=== PATIENT | female | born 1960 | race Caucasian/White ===

== ENCOUNTER 2019-09-04 09:24 | Outpatient (REF) | payer BC, SELFPAY ==
[2019-09-04 20:16] LABS: Prothrombin Time 40.6 sec (9.3-11.0)
[2019-09-04 20:50] LABS: INR 4.2 (0.9-1.1)
== END 2019-09-04 09:44 ==
LOC: NCHCN 09:24
PROVIDERS: Family Medicine; Visit Provider Internal Medicine
DX: Z95.2 Presence of prosthetic heart valve (principal); Z79.01 Long term (current) use of anticoagulants; R53.1 Weakness; Z93.4 Other artificial openings of gastrointestinal tract status; K21.9 Gastro-esophageal reflux disease without esophagitis; E11.9 Type 2 diabetes mellitus without complications; D50.9 Iron deficiency anemia, unspecified
CPT/HCPCS: 84590; 85610

== ENCOUNTER 2019-10-05 14:47 | Outpatient (REF) | payer BC, SELFPAY ==
[2019-10-05 22:15] LABS: Albumin 3.2 g/dL (3.4-5.0); Anion Gap 5.3 mmol/L (3-11); CO2 31.7 mmol/L (21.0-32.0); Calcium 8.1 mg/dL (8.5-10.1); Chloride 104 mmol/L (98-107); Estimated GFR 56.37 (mL/min/1.73m2); NT-proBNP 481 pg/mL (<300); Potassium 3.6 mmol/L (3.5-5.1); Sodium 141 mmol/L (136-145); TSH (W/Ref FT4) 0.28 uIU/mL (0.36-3.74)
[2019-10-05 22:46] LABS: ALT 24 U/L (14-59); AST 28 U/L (15-37); Alkaline Phosphatase 97 U/L (46-116); BUN 13 mg/dL (7-18); Bilirubin, Total 0.5 mg/dL (0.2-1.0); Glucose 115 mg/dL (74-106); Total Protein 6.2 g/dL (6.4-8.2)
[2019-10-06 03:06] LABS: FREE T4 1.43 ng/dL (0.76-1.46)
[2019-10-06 12:49] LABS: HCT 30.7 % (36.0-46.0); HGB 8.6 g/dL (12.0-15.5); Mean Corpuscular Hemoglobin 21.2 pg (27.0-33.0); Mean Corpuscular Volume 75.6 fL (80-95); Mean Platelet Volume 9.7 fL (8.0-11.0); Platelet Count 423 x1000/uL (130-400); RBC 4.06 m/cumm (4.00-5.20); RBC Distribution Width 16.7 % (11.7-14.6)
== END 2019-10-05 15:07 ==
LOC: NCHCN 14:47
PROVIDERS: Visit Provider Internal Medicine
DX: R06.02 Shortness of breath (principal); R53.83 Other fatigue
CPT/HCPCS: 80053; 85027; 83880; 84439; 84443

== ENCOUNTER 2019-10-12 14:30 | Outpatient (REF) | payer BC, SELFPAY ==
[2019-10-12 21:12] LABS: INR 3.4 (0.9-1.1); Prothrombin Time 33.5 sec (9.3-11.0)
[2019-10-12 22:33] LABS: Anion Gap 6.5 mmol/L (3-11); BUN 12 mg/dL (7-18); CO2 30.5 mmol/L (21.0-32.0); CREATININE 1.01 mg/dL (0.55-1.02); Calcium 7.8 mg/dL (8.5-10.1); Chloride 104 mmol/L (98-107); Estimated GFR 55.72 (mL/min/1.73m2); Glucose 55 mg/dL (74-106); Potassium 3.7 mmol/L (3.5-5.1); Sodium 141 mmol/L (136-145)
== END 2019-10-12 14:50 ==
LOC: NCHCN 14:30
PROVIDERS: Visit Provider Internal Medicine
DX: R06.02 Shortness of breath (principal); Z79.01 Long term (current) use of anticoagulants; Z95.2 Presence of prosthetic heart valve
CPT/HCPCS: 80048; 85610

== ENCOUNTER 2019-10-30 17:34 | Outpatient (REF) | payer BC, SELFPAY ==
[2019-10-30 19:56] LABS: INR 2.6 (0.9-1.1)
[2019-10-30 20:31] LABS: HCT 36.4 % (36.0-46.0); HGB 10.5 g/dL (12.0-15.5); Mean Corp. HGB Concentration 28.8 g/dL (32.0-36.0); Mean Corpuscular Hemoglobin 24.4 pg (27.0-33.0); Mean Corpuscular Volume 84.5 fL (80-95); Mean Platelet Volume 9.4 fL (8.0-11.0); Platelet Count 359 x1000/uL (130-400); RBC 4.31 m/cumm (4.00-5.20); RBC Distribution Width 25.7 % (11.7-14.6); White Blood Cell Count 6.64 k/cumm (4.4-10.8)
[2019-10-30 21:21] LABS: Ferritin 204 ng/mL (8-252)
== END 2019-10-30 17:54 ==
LOC: NCHCN 17:34
PROVIDERS: Nurse Practitioner Family; Visit Provider Internal Medicine
DX: D50.9 Iron deficiency anemia, unspecified (principal); Z79.01 Long term (current) use of anticoagulants; Z95.2 Presence of prosthetic heart valve
CPT/HCPCS: 85027; 82728; 85610

== ENCOUNTER 2021-03-08 19:05 | Outpatient (REF) | payer BC, SELFPAY ==
[2021-03-08 21:53] LABS: Abs Immature Grans 0.03 10^3/uL (0.0-0.06); Absolute Basophil Count 0.08 10^3/uL (0.0-0.2); Absolute Eosinophil Count 0.01 10^3/uL (0.0-0.7); Absolute Lymphocyte Count 2.17 10^3/uL (1.2-3.4); Absolute Monocyte Count 1.06 10^3/uL (0.1-0.8); Absolute Neutrophil Count 6.68 10^3/uL (1.2-6.7); Basophils % 0.8; Eosinophils % 0.1; HCT 44.6 % (36.0-46.0); HGB 14.5 g/dL (11.2-15.7); Immature Grans % 0.3; Lymphocytes % 21.6; MCH 30.7 pg (27.0-33.0); MCHC 32.5 % (32.0-36.0); MCV 94.3 fL (80-95); MPV 9.9 fL (8.0-11.0); Monocytes % 10.6; Neutrophils % 66.6; Nucleated RBC 0 %; Platelet Count 303 10^3/uL (130-400); RBC 4.73 10^6/uL (3.93-5.22); RDW 14.4 % (11.7-14.6); RDW-SD 49.8 fL; WBC 10.03 10^3/uL (4.4-10.8)
[2021-03-08 22:10] LABS: ALT 22 U/L (14-59); AST 31 U/L (15-37); Albumin 3.8 g/dL (3.4-5.0); Alkaline Phosphatase 100 U/L (46-116); Anion Gap 9.5 mmol/L (3-11); BUN 14 mg/dL (7-18); Bilirubin, Total 0.8 mg/dL (0.2-1.0); CO2 28.5 mmol/L (21.0-32.0); CREATININE 1.1 mg/dL (0.55-1.02); Chloride 106 mmol/L (98-107); Estimated GFR 50.33 (mL/min/1.73m2); Glucose 82 mg/dL (74-106); Potassium 4.2 mmol/L (3.5-5.1); Sodium 144 mmol/L (136-145); Total Protein 6.4 g/dL (6.4-8.2)
[2021-03-08 22:26] LABS: Hemoglobin A1C 5.1 % (<5.7)
== END 2021-03-08 19:06 | disposition home or self-care (01) ==
LOC: NCHCN 19:05
PROVIDERS: Visit Provider Internal Medicine
DX: E11.9 Type 2 diabetes mellitus without complications (principal); I50.9 Heart failure, unspecified
CPT/HCPCS: 80053; 83036; 85025

== ENCOUNTER 2021-04-04 17:24 | Outpatient (REF) | payer BC, SELFPAY ==
[2021-04-04 21:28] LABS: HCT 46.1 % (36.0-46.0); MCH 30.5 pg (27.0-33.0); MCHC 32.5 % (32.0-36.0); MCV 93.7 fL (80-95); MPV 9.8 fL (8.0-11.0); Platelet Count 348 10^3/uL (130-400); RBC 4.92 10^6/uL (3.93-5.22); RDW 13.2 % (11.7-14.6); RDW-SD 45.6 fL
[2021-04-04 21:37] LABS: Prothrombin Time 61.9 sec (9.3-11.0)
[2021-04-04 22:15] LABS: INR 6.5 (0.9-1.1)
[2021-04-06 12:55] LABS: COVID-19 RT-PCR UVMMC Result Negative (Negative)
== END 2021-04-04 17:25 | disposition home or self-care (01) ==
LOC: NCHCN 17:24
PROVIDERS: Visit Provider Nurse Practitioner Family
DX: Z95.2 Presence of prosthetic heart valve (principal); Z79.01 Long term (current) use of anticoagulants; J06.9 Acute upper respiratory infection, unspecified; J02.9 Acute pharyngitis, unspecified; Z20.822 Contact with and (suspected) exposure to COVID-19
CPT/HCPCS: 85027; U0003; 85610

== ENCOUNTER 2021-07-24 21:46 | Outpatient (REF) | payer BC, SELFPAY ==
[2021-07-26 12:53] LABS: COVID-19 RT-PCR UVMMC Result Negative (Negative)
== END 2021-07-24 21:47 | disposition home or self-care (01) ==
LOC: NCHCN 21:46
PROVIDERS: Visit Provider Internal Medicine
DX: Z20.822 Contact with and (suspected) exposure to COVID-19 (principal); J06.9 Acute upper respiratory infection, unspecified
CPT/HCPCS: U0003

== ENCOUNTER 2021-08-01 15:19 | Outpatient (REF) | payer BC, SELFPAY ==
[2021-08-01 22:29] LABS: Prothrombin Time 55.9 sec (9.3-11.0)
[2021-08-01 23:17] LABS: INR 5.8 (0.9-1.1)
== END 2021-08-01 15:20 | disposition home or self-care (01) ==
LOC: NCHCN 15:19
PROVIDERS: Visit Provider Internal Medicine
DX: I48.0 Paroxysmal atrial fibrillation (principal)
CPT/HCPCS: 85610

== ENCOUNTER 2022-02-07 19:57 | Outpatient (REF) | payer MEDICAID, SELFPAY ==
[2022-02-07 21:47] LABS: Prothrombin Time 66.3 sec (9.3-11.0)
[2022-02-07 22:01] LABS: INR 6.9 (0.9-1.1)
== END 2022-02-07 19:58 | disposition home or self-care (01) ==
LOC: NCHCN 19:57
PROVIDERS: Visit Provider Internal Medicine
DX: I50.9 Heart failure, unspecified (principal); Z95.2 Presence of prosthetic heart valve; Z79.01 Long term (current) use of anticoagulants
CPT/HCPCS: 85610

== ENCOUNTER 2022-06-06 17:00 | Outpatient (REF) | payer MEDICAID, SELFPAY ==
[2022-06-06 21:11] LABS: HCT 44.3 % (36.0-46.0); HGB 14.1 g/dL (11.2-15.7); MCH 29.7 pg (27.0-33.0); MCHC 31.8 % (32.0-36.0); MCV 94 fL (80-95); Platelet Count 318 10^3/uL (130-400); RBC 4.74 10^6/uL (3.93-5.22); RDW 13.9 % (11.7-14.6); RDW-SD 47.9 fL; WBC 11.51 10^3/uL (4.4-10.8)
== END 2022-06-06 17:01 | disposition home or self-care (01) ==
LOC: NCHCN 17:00
PROVIDERS: Visit Provider Internal Medicine
DX: D64.9 Anemia, unspecified (principal)
CPT/HCPCS: 85027

== ENCOUNTER 2022-06-25 15:36 | Outpatient (REF) | payer MEDICAID, SELFPAY ==
[2022-06-25 20:54] LABS: Prothrombin Time 41.6 sec (9.3-11.0)
[2022-06-25 21:07] LABS: INR 4.5 (0.9-1.1)
== END 2022-06-25 15:37 | disposition home or self-care (01) ==
LOC: NCHCN 15:36
PROVIDERS: PCP Nurse Practitioner Family; Visit Provider Internal Medicine
DX: Z51.81 Encounter for therapeutic drug level monitoring (principal)
CPT/HCPCS: 85610

== ENCOUNTER 2022-07-18 16:33 | Outpatient (REF) | payer MEDICAID, SELFPAY ==
[2022-07-18 20:58] LABS: C-Reactive Protein 0.09 mg/dL (0.0-0.3); ESR 11 mm/hr (0-30)
== END 2022-07-18 16:34 | disposition home or self-care (01) ==
LOC: NCHCN 16:33
PROVIDERS: PCP Nurse Practitioner Family; Visit Provider Internal Medicine
DX: G44.89 Other headache syndrome (principal)
CPT/HCPCS: 85652; 86140

== ENCOUNTER 2022-08-15 18:22 | Outpatient (REF) | payer MEDICAID, SELFPAY ==
[2022-08-15 14:45] LABS: Lithium 0.4 mmol/l (0.6-1.2)
[2022-08-15 14:57] LABS: ALT 44 U/L (14-59); AST 49 U/L (15-37); Albumin 3.3 g/dL (3.4-5.0); Alkaline Phosphatase 93 U/L (46-116); Anion Gap 4.6 mmol/L (3-11); BUN 11 mg/dL (7-18); Bilirubin, Total 0.6 mg/dL (0.2-1.0); CO2 31.4 mmol/L (21.0-32.0); CREATININE 1.2 mg/dL (0.55-1.02); Calcium 8.7 mg/dL (8.5-10.1); Chloride 109 mmol/L (98-107); Estimated GFR 50.55 (mL/min/1.73m2); FREE T4 0.84 ng/dL (0.76-1.46); Glucose 150 mg/dL (74-106); Potassium 4.1 mmol/L (3.5-5.1); Sodium 145 mmol/L (136-145); TSH 2.86 uIU/mL (0.36-3.74); Total Protein 6.5 g/dL (6.4-8.2)
== END 2022-08-15 18:23 | disposition home or self-care (01) ==
LOC: LBN 18:22
PROVIDERS: PCP Nurse Practitioner Family; Visit Provider Nurse Practitioner Family
DX: F31.62 Bipolar disorder, current episode mixed, moderate (principal); Z91.49 Other personal history of psychological trauma, not elsewhere classified; Z79.899 Other long term (current) drug therapy; Z51.81 Encounter for therapeutic drug level monitoring
CPT/HCPCS: 80053; 80178; 84439; 84443

== ENCOUNTER 2022-09-06 21:09 | Outpatient (REF) | payer MEDICAID, SELFPAY ==
[2022-09-06 21:28] LABS: Anion Gap 5.5 mmol/L (3-11); BUN 20 mg/dL (7-18); CO2 30.5 mmol/L (21.0-32.0); CREATININE 1.5 mg/dL (0.55-1.02); Calcium 9.1 mg/dL (8.5-10.1); Chloride 106 mmol/L (98-107); Estimated GFR 38.67 (mL/min/1.73m2); Glucose 116 mg/dL (74-106); Potassium 4.3 mmol/L (3.5-5.1); Sodium 142 mmol/L (136-145)
== END 2022-09-06 21:10 | disposition home or self-care (01) ==
LOC: NCHCN 21:09
PROVIDERS: PCP Nurse Practitioner Family; Visit Provider Internal Medicine
DX: I50.30 Unspecified diastolic (congestive) heart failure
CPT/HCPCS: 80048

== ENCOUNTER 2022-09-13 16:38 | Outpatient (REF) | payer MEDICAID, SELFPAY ==
[2022-09-13 21:09] LABS: Anion Gap 3.5 mmol/L (3-11); BUN 15 mg/dL (7-18); CO2 31.5 mmol/L (21.0-32.0); CREATININE 1.2 mg/dL (0.55-1.02); Calcium 8.8 mg/dL (8.5-10.1); Chloride 107 mmol/L (98-107); Estimated GFR 50.55 (mL/min/1.73m2); Glucose 53 mg/dL (74-106); Potassium 4.5 mmol/L (3.5-5.1); Sodium 142 mmol/L (136-145)
== END 2022-09-13 16:39 | disposition home or self-care (01) ==
LOC: NCHCN 16:38
PROVIDERS: PCP Nurse Practitioner Family; Visit Provider Internal Medicine
DX: I50.9 Heart failure, unspecified (principal)
CPT/HCPCS: 80048

== ENCOUNTER 2022-11-16 16:21 | Outpatient (REF) | payer MEDICAID, SELFPAY ==
[2022-11-16 21:53] LABS: HCT 44.8 % (36.0-46.0); HGB 13.9 g/dL (11.2-15.7); MCH 28.4 pg (27.0-33.0); MCV 91 fL (80-95); MPV 9.7 fL (8.0-11.0); Platelet Count 332 10^3/uL (130-400); RDW-SD 51.2 fL; WBC 9.53 10^3/uL (4.4-10.8)
[2022-11-16 22:09] LABS: Iron 34 ug/dL (50-170)
[2022-11-16 22:20] LABS: Ferritin 136 ng/mL (8-252)
[2022-11-19 09:27] LABS: Total Iron Binding Capacity 409 ug/dL (250-450)
== END 2022-11-16 16:22 | disposition home or self-care (01) ==
LOC: NCHCN 16:21
PROVIDERS: PCP Nurse Practitioner Family; Visit Provider Internal Medicine
DX: D50.9 Iron deficiency anemia, unspecified (principal); R06.00 Dyspnea, unspecified
CPT/HCPCS: 85027; 82728; 83540; 83550

== ENCOUNTER 2022-12-17 16:14 | Outpatient (REF) | payer MEDICAID, SELFPAY ==
[2022-12-17 20:55] LABS: HGB 13.8 g/dL (11.2-15.7); MCH 28.8 pg (27.0-33.0); MCHC 31.4 % (32.0-36.0); MCV 92 fL (80-95); MPV 9.4 fL (8.0-11.0); Platelet Count 341 10^3/uL (130-400); RBC 4.79 10^6/uL (3.93-5.22); RDW-SD 51.1 fL; WBC 12.96 10^3/uL (4.4-10.8)
[2022-12-17 21:03] LABS: Anion Gap 3.2 mmol/L (3-11); BUN 11 mg/dL (7-18); CO2 33.8 mmol/L (21.0-32.0); CREATININE 1.2 mg/dL (0.55-1.02); Calcium 8.8 mg/dL (8.5-10.1); Chloride 105 mmol/L (98-107); Estimated GFR 50.55 (mL/min/1.73m2); Glucose 101 mg/dL (74-106); Potassium 4.7 mmol/L (3.5-5.1); Sodium 142 mmol/L (136-145)
[2022-12-17 21:39] LABS: Prothrombin Time 47.3 sec (9.3-11.0)
[2022-12-17 21:52] LABS: INR 4.7 (0.9-1.1)
== END 2022-12-17 16:15 | disposition home or self-care (01) ==
LOC: NCHCN 16:14
PROVIDERS: PCP Nurse Practitioner Family; Visit Provider Internal Medicine
DX: N18.9 Chronic kidney disease, unspecified (principal); R79.1 Abnormal coagulation profile
CPT/HCPCS: 80048; 85027; 85610

== ENCOUNTER 2022-12-21 11:30 | Outpatient (REF) | payer MEDICAID, SELFPAY ==
[2022-12-21 15:39] LABS: Lithium 0.3 mmol/l (0.6-1.2)
[2022-12-21 15:57] LABS: Anion Gap 4.4 mmol/L (3-11); BUN 16 mg/dL (7-18); CO2 29.6 mmol/L (21.0-32.0); CREATININE 1.2 mg/dL (0.55-1.02); Calcium 9.1 mg/dL (8.5-10.1); Chloride 108 mmol/L (98-107); Estimated GFR 50.55 (mL/min/1.73m2); FREE T4 1.01 ng/dL (0.76-1.46); Glucose 111 mg/dL (74-106); Potassium 4.3 mmol/L (3.5-5.1); Sodium 142 mmol/L (136-145); TSH 6.78 uIU/mL (0.36-3.74)
== END 2022-12-21 11:31 | disposition home or self-care (01) ==
LOC: NCHCN 11:30
PROVIDERS: PCP Nurse Practitioner Family; Visit Provider Nurse Practitioner Family
DX: F31.32 Bipolar disorder, current episode depressed, moderate (principal); F31.77 Bipolar disorder, in partial remission, most recent episode mixed; R45.851 Suicidal ideations; F31.81 Bipolar II disorder; F13.288 Sedative, hypnotic or anxiolytic dependence with other sedative, hypnotic or anxiolytic-induced disorder; Z91.49 Other personal history of psychological trauma, not elsewhere classified; Z81.1 Family history of alcohol abuse and dependence; Z51.81 Encounter for therapeutic drug level monitoring; Z79.899 Other long term (current) drug therapy
CPT/HCPCS: 80048; 80178; 84439; 84443

== ENCOUNTER 2022-12-27 18:19 | Outpatient (REF) | payer MEDICAID, SELFPAY ==
[2022-12-27 21:58] LABS: Anion Gap 5.6 mmol/L (3-11); BUN 23 mg/dL (7-18); CO2 31.4 mmol/L (21.0-32.0); CREATININE 1.5 mg/dL (0.55-1.02); Calcium 9.2 mg/dL (8.5-10.1); Chloride 101 mmol/L (98-107); Estimated GFR 38.67 (mL/min/1.73m2); Glucose 116 mg/dL (74-106); Potassium 3.7 mmol/L (3.5-5.1); Sodium 138 mmol/L (136-145)
== END 2022-12-27 18:20 | disposition home or self-care (01) ==
LOC: NCHCN 18:19
PROVIDERS: PCP Nurse Practitioner Family; Visit Provider Internal Medicine
DX: R60.0 Localized edema (principal)
CPT/HCPCS: 80048

== ENCOUNTER 2023-01-04 16:21 | Outpatient (REF) | payer MEDICAID, SELFPAY ==
[2023-01-04 21:34] LABS: Anion Gap 5.6 mmol/L (3-11); BUN 18 mg/dL (7-18); CO2 33.4 mmol/L (21.0-32.0); CREATININE 1.4 mg/dL (0.55-1.02); Calcium 9.5 mg/dL (8.5-10.1); Chloride 101 mmol/L (98-107); Estimated GFR 42.01 (mL/min/1.73m2); Glucose 80 mg/dL (74-106); Potassium 3.8 mmol/L (3.5-5.1); Sodium 140 mmol/L (136-145)
== END 2023-01-04 16:22 | disposition home or self-care (01) ==
LOC: NCHCN 16:21
PROVIDERS: PCP Nurse Practitioner Family; Visit Provider Internal Medicine
DX: N18.9 Chronic kidney disease, unspecified (principal)
CPT/HCPCS: 80048

== ENCOUNTER 2023-01-11 16:06 | Outpatient (REF) | payer MEDICAID, SELFPAY ==
[2023-01-11 15:03] LABS: Prothrombin Time 43.4 sec (9.3-11.0)
[2023-01-11 15:11] LABS: INR 4.3 (0.9-1.1)
== END 2023-01-11 16:07 | disposition home or self-care (01) ==
LOC: NCHCN 16:06
PROVIDERS: PCP Nurse Practitioner Family; Visit Provider Internal Medicine
DX: Z95.2 Presence of prosthetic heart valve (principal); Z79.01 Long term (current) use of anticoagulants
CPT/HCPCS: 85610

== ENCOUNTER 2023-01-18 15:48 | Outpatient (REF) | payer MEDICAID, SELFPAY ==
[2023-01-18 15:19] LABS: INR 3.4 (0.9-1.1); Prothrombin Time 34.7 sec (9.3-11.0)
--- OUTSIDE RECORDS SUMMARY | 2023-01-18 15:53 | XMS_ITS | CCD ---
Author Name Unknown Address [address] [place] [address] [phone] Organization Unknown Address [address] [place] [address] [phone] Care Team Providers Care Forger Helper Name Role Phone MARISELA LUNA Attending Physician [phone] Vital Signs Unknown or Not Available. Allergies Allergy Code Allergy Type Reaction Status No Known Allergies 0 No known allergies Active Procedures Unknown or Not Available. History of Immunizations Unknown or Not Available. Problems Problem Code Start Date Resolved Date Status Pneumonia 336938453 Active Paroxysmal atrial fibrillation 236840929 Active Chronic pain due to injury 181721687 Active Hypoxia 286484542 Active Hyperlipidemia 27328928 01/31/2022 Resolved Obstructive sleep apnea 27867402 01/31/2022 R esolved Anxiety 90934693 01/31/2022 Resolved Rheumatic heart disease 23250402 01/31/2022 R esolved Aortic valve disorder 0666002 01/31/2022 Res olved Mitral valve disorder 24053566 01/31/2022 Res olved Personal history of TIA 827924335 01/31/2022 R esolved Type 2 diabetes 17353815 01/31/2022 Resolved Gastroesophageal reflux disease 845640211 01/08 Resolved Iron deficiency anemia 33581477 01/31/2022 Re solved Bipolar disorder 82684048 01/31/2022 Resolved Heart failure 93828108 01/31/2022 Resolved Results PT PROTHROMBIN TIME* - Colle ct Date/Time: 11/02/2021 13:15 Test Name Code Test Result Test Units Test Ref Rang e PROTIME 5902-2 25.9 seconds L=9.3 H=11.4 INR 09339-9 2.77 L=2.00 H=3.00 Active Medications Medication Code Dose Units Frequency Route Modificatio n Start Date/Time Azithromycin 250MG Oral Tablet 482905 1 TABLET DAILY ORAL 02/03/2022 08:48 Prescription Detail TAKE 1 TABLET ORAL DAILY ALPRAZolam 1MG Oral Tablet 989788 1 MILLIGRAMS NEEDED TWICE DAILY ORAL 02/03/2022 08:41 Prescription Detail TAKE 1 MILLIGRAMS ORAL NEEDED TWICE D AILY Desvenlafaxine 100MG Oral Tablet, Extended Release 639595 100 MILLIGRAMS DAILY ORAL 2 08:41 Prescription Detail TAKE 100 MILLIGRAMS ORAL DAILY Ezetimibe 10 MG Oral Tablet 176692 10 MG BEDTIME ORAL 02/04/20 22 08:41 Prescription Detail TAKE 10 MG ORAL BEDTIME lamoTRIgine 100MG Oral Tablet 945580 100 MILLIGRAMS DAILY ORAL 2 08:41 Prescription Detail TAKE 100 MILLIGRAMS ORAL DAILY lamoTRIgine 25MG Oral Tablet 735997 25 MILLIGRAMS DAILY ORAL 022 08:41 Prescription Detail TAKE 25 MILLIGRAMS ORAL DAILY metFORMIN HCl 500MG Oral Tablet, Extended Release 538612 500 MILLIGRAMS BEDTIME ORAL 2 08:41 Prescription Detail TAKE 500 MILLIGRAMS ORAL BEDTIME Rosuvastatin 40MG Oral Tablet 205362 40 MILLIGRAMS BEDTIME ORAL 08:41 Prescription Detail TAKE 40 MILLIGRAMS ORAL BEDTIME Spironolactone 25MG Oral Tablet 173000 25 MILLIGRAMS TWICE A DAY ORAL 02/03/2022 08:41 Prescription Detail TAKE 25 MILLIGRAMS ORAL TWICE A DAY Warfarin Sodium 2MG Oral Tablet 444368 2 MILLIGRAMS BEDTIME ORAL 08:41 Prescription Detail TAKE 2 MILLIGRAMS ORAL BEDTIME Protonix 40MG Oral Tablet, Enteric Coated 048515 40 MILLIGRAMS DAILY ORAL 07/10 13:32 Prescription Detail TAKE 40 MILLIGRAMS ORAL DAILY PREMARIN 0.45MG ORAL TABLET 0 0.45 MILLIGRAMS DAILY ORAL 019 00:16 Prescription Detail TAKE 0.45 MILLIGRAMS ORAL DAILY Medications Administered During Visit Unknown or Not Available. Encounters Encounter Diagnosis Diagnosis Code Start Date Long-term current use of anticoagulant [id number] 11/02/2021 Social History Smoking Status Code Start Date End Date Former smoker 3765337 Patient Decision Aids Unknown or Not Available. 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 If you have left the hospital and have any questions, please contact your primary care physician. Chief Complaint and Reason For Visit Unknown or Not Available. Function Status Description Code Date Type Status No Cognitive Impairments 29736483 Functional Active No Functional Impairments 63626517 Functional Active Plan of Care Unknown or Not Available. Referral/Transition of Care Unknown or Not Available.
--- OUTSIDE RECORDS SUMMARY | 2023-01-18 15:53 | XMS_ITS | CCD ---
Author Name Unknown Address [address] [place] [address] [phone] Organization Unknown Address [address] [place] [address] [phone] Care Team Providers Care Elder Counselor Name Role Phone MARISELA LUNA Attending Physician [phone] Vital Signs Unknown or Not Available. Allergies Allergy Code Allergy Type Reaction Status No Known Allergies 0 No known allergies Active Procedures Unknown or Not Available. History of Immunizations Unknown or Not Available. Problems Problem Code Start Date Resolved Date Status Pneumonia 954268912 Active Paroxysmal atrial fibrillation 161166755 Active Chronic pain due to injury 336063495 Active Hypoxia 912172396 Active Hyperlipidemia 25713605 01/31/2022 Resolved Obstructive sleep apnea 74535635 01/31/2022 R esolved Anxiety 58815668 01/31/2022 Resolved Rheumatic heart disease 47354640 01/31/2022 R esolved Aortic valve disorder 6196398 01/31/2022 Res olved Mitral valve disorder 93077990 01/31/2022 Res olved Personal history of TIA 470448747 01/31/2022 R esolved Type 2 diabetes 07499136 01/31/2022 Resolved Gastroesophageal reflux disease 582461630 01/08 Resolved Iron deficiency anemia 85382343 01/31/2022 Re solved Bipolar disorder 38112736 01/31/2022 Resolved Heart failure 65282983 01/31/2022 Resolved Results Unknown or Not Available. Active Medications Medication Code Dose Units Frequency Route Modificatio n Start Date/Time Azithromycin 250MG Oral Tablet 692612 1 TABLET DAILY ORAL 02/03/2022 08:48 Prescription Detail TAKE 1 TABLET ORAL DAILY ALPRAZolam 1MG Oral Tablet 253505 1 MILLIGRAMS NEEDED TWICE DAILY ORAL 02/03/2022 08:41 Prescription Detail TAKE 1 MILLIGRAMS ORAL NEEDED TWICE D AILY Desvenlafaxine 100MG Oral Tablet, Extended Release 218183 100 MILLIGRAMS DAILY ORAL 08:41 Prescription Detail TAKE 100 MILLIGRAMS ORAL DAILY Ezetimibe 10 MG Oral Tablet 151661 10 MG BEDTIME ORAL 02/04/20 08:41 Prescription Detail TAKE 10 MG ORAL BEDTIME lamoTRIgine 100MG Oral Tablet 410990 100 MILLIGRAMS DAILY ORAL 2 08:41 Prescription Detail TAKE 100 MILLIGRAMS ORAL DAILY lamoTRIgine 25MG Oral Tablet 572920 25 MILLIGRAMS DAILY ORAL 022 08:41 Prescription Detail TAKE 25 MILLIGRAMS ORAL DAILY metFORMIN HCl 500MG Oral Tablet, Extended Release 763033 500 MILLIGRAMS BEDTIME ORAL 08:41 Prescription Detail TAKE 500 MILLIGRAMS ORAL BEDTIME Rosuvastatin 40MG Oral Tablet 520750 40 MILLIGRAMS BEDTIME ORAL 08:41 Prescription Detail TAKE 40 MILLIGRAMS ORAL BEDTIME Spironolactone 25MG Oral Tablet 803860 25 MILLIGRAMS TWICE A DAY ORAL 02/03/2022 08:41 Prescription Detail TAKE 25 MILLIGRAMS ORAL TWICE A DAY Warfarin Sodium 2MG Oral Tablet 311295 2 MILLIGRAMS BEDTIME ORAL 08:41 Prescription Detail TAKE 2 MILLIGRAMS ORAL BEDTIME Protonix 40MG Oral Tablet, Enteric Coated 362760 40 MILLIGRAMS DAILY ORAL 07/10 13:32 Prescription Detail TAKE 40 MILLIGRAMS ORAL DAILY PREMARIN 0.45MG ORAL TABLET 0 0.45 MILLIGRAMS DAILY ORAL 019 00:16 Prescription Detail TAKE 0.45 MILLIGRAMS ORAL DAILY Medications Administered During Visit Unknown or Not Available. Encounters Encounter Diagnosis Diagnosis Code Start Date Primary osteoarthritis, right shoulder [id number] 01/19/2022 Social History Smoking Status Code Start Date End Date Former smoker [id number] Patient Decision Aids Unknown or Not Available. Discharge Instructions You were admitted to [facility] on 01/19/2022 06:43 with a principal diagnosis of Primary osteoarthritis, right shoulder You were discharged from [facility] on 01/19/2022 06:43 Should you have any questions prior to discharge, please contact a member of your healthcare team. If you have left the hospital and have any questions, please contact your primary care physician. Chief Complaint and Reason For Visit Chief Complaint Date of Onset RT SHOULDER PAIN Function Status Description Code Date Type Status No Cognitive Impairments 54122432 Functional Active No Functional Impairments 51672481 Functional Active Plan of Care Unknown or Not Available. Referral/Transition of Care Unknown or Not Available.
--- OUTSIDE RECORDS SUMMARY | 2023-01-18 15:53 | XMS_ITS | CCD ---
Author Name Unknown Address [address] [place] [address] [phone] Organization Unknown Address [address] [place] [address] [phone] Care Team Providers Care General Agent Name Role Phone MARISELA LUNA Attending Physician [phone] Vital Signs Unknown or Not Available. Allergies Allergy Code Allergy Type Reaction Status No Known Allergies 0 No known allergies Active Procedures Unknown or Not Available. History of Immunizations Unknown or Not Available. Problems Problem Code Start Date Resolved Date Status Pneumonia 612945984 Active Paroxysmal atrial fibrillation 186207325 Active Chronic pain due to injury 810430003 Active Hypoxia 210129661 Active Hyperlipidemia 53876728 01/31/2022 Resolved Obstructive sleep apnea 97775819 01/31/2022 R esolved Anxiety 55189917 01/31/2022 Resolved Rheumatic heart disease 53955206 01/31/2022 R esolved Aortic valve disorder 4073063 01/31/2022 Res olved Mitral valve disorder 26638910 01/31/2022 Res olved Personal history of TIA 867476346 01/31/2022 R esolved Type 2 diabetes 38085992 01/31/2022 Resolved Gastroesophageal reflux disease 738079813 01/08 Resolved Iron deficiency anemia 17189429 01/31/2022 Re solved Bipolar disorder 21775099 01/31/2022 Resolved Heart failure 70242256 01/31/2022 Resolved Results PT PROTHROMBIN TIME* - Colle ct Date/Time: 07/26/2021 13:19 Test Name Code Test Result Test Units Test Ref Rang e PROTIME 5902-2 97.3 seconds L=9.3 H=11.4 INR 46724-1 9.76 L=2.00 H=3.00 CULT URINE CULTURE* - Colle t Date/Time: 07/26/2021 13:19 Test Name Code Test Result Test Units Test Ref Rang e COLLECTION MODE: CLEAN CATCH N/A Active Medications Medication Code Dose Units Frequency Route Modificatio n Start Date/Time Azithromycin 250MG Oral Tablet 556546 1 TABLET DAILY ORAL 02/03/2022 08:48 Prescription Detail TAKE 1 TABLET ORAL DAILY ALPRAZolam 1MG Oral Tablet 141711 1 MILLIGRAMS NEEDED TWICE DAILY ORAL 02/03/2022 08:41 Prescription Detail TAKE 1 MILLIGRAMS ORAL NEEDED TWICE D AILY Desvenlafaxine 100MG Oral Tablet, Extended Release 676034 100 MILLIGRAMS DAILY ORAL 2 08:41 Prescription Detail TAKE 100 MILLIGRAMS ORAL DAILY Ezetimibe 10 MG Oral Tablet 760463 10 MG BEDTIME ORAL 02/04/20 08:41 Prescription Detail TAKE 10 MG ORAL BEDTIME lamoTRIgine 100MG Oral Tablet 975438 100 MILLIGRAMS DAILY ORAL 2 08:41 Prescription Detail TAKE 100 MILLIGRAMS ORAL DAILY lamoTRIgine 25MG Oral Tablet 878646 25 MILLIGRAMS DAILY ORAL 022 08:41 Prescription Detail TAKE 25 MILLIGRAMS ORAL DAILY metFORMIN HCl 500MG Oral Tablet, Extended Release 676570 500 MILLIGRAMS BEDTIME ORAL 08:41 Prescription Detail TAKE 500 MILLIGRAMS ORAL BEDTIME Rosuvastatin 40MG Oral Tablet 684833 40 MILLIGRAMS BEDTIME ORAL 08:41 Prescription Detail TAKE 40 MILLIGRAMS ORAL BEDTIME Spironolactone 25MG Oral Tablet 536292 25 MILLIGRAMS TWICE A DAY ORAL 02/03/2022 08:41 Prescription Detail TAKE 25 MILLIGRAMS ORAL TWICE A DAY Warfarin Sodium 2MG Oral Tablet 805920 2 MILLIGRAMS BEDTIME ORAL 08:41 Prescription Detail TAKE 2 MILLIGRAMS ORAL BEDTIME Protonix 40MG Oral Tablet, Enteric Coated 241082 40 MILLIGRAMS DAILY ORAL 07/10 13:32 Prescription Detail TAKE 40 MILLIGRAMS ORAL DAILY PREMARIN 0.45MG ORAL TABLET 0 0.45 MILLIGRAMS DAILY ORAL 019 00:16 Prescription Detail TAKE 0.45 MILLIGRAMS ORAL DAILY Medications Administered During Visit Unknown or Not Available. Encounters Encounter Diagnosis Diagnosis Code Start Date Long-term current use of anticoagulant [id number] 07/26/2021 Social History Smoking Status Code Start Date End Date Former smoker 7019393 Patient Decision Aids Unknown or Not Available. 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 If you have left the hospital and have any questions, please contact your primary care physician. Chief Complaint and Reason For Visit Chief Complaint Date of Onset Encounter for screening mammogram for ma lignant neoplasm of breast Function Status Description Code Date Type Status No Cognitive Impairments 62753271 Functional Active No Functional Impairments 04786902 Functional Active Plan of Care Unknown or Not Available. Referral/Transition of Care Unknown or Not Available.
--- OUTSIDE RECORDS SUMMARY | 2023-01-18 15:53 | XMS_ITS | CCD ---
Author Name Unknown Address [address] [place] [address] [phone] Organization Unknown Address [address] [place] [address] [phone] Care Team Providers Care Bake Room Worker Name Role Phone MARISELA LUNA Attending Physician [phone] Vital Signs Unknown or Not Available. Allergies Allergy Code Allergy Type Reaction Status No Known Allergies 0 No known allergies Active Procedures Unknown or Not Available. History of Immunizations Unknown or Not Available. Problems Problem Code Start Date Resolved Date Status Pneumonia 402291405 Active Paroxysmal atrial fibrillation 980114558 Active Chronic pain due to injury 139177414 Active Hypoxia 210871825 Active Hyperlipidemia 61392226 01/31/2022 Resolved Obstructive sleep apnea 47471975 01/31/2022 R esolved Anxiety 83325288 01/31/2022 Resolved Rheumatic heart disease 90255974 01/31/2022 R esolved Aortic valve disorder 0112046 01/31/2022 Res olved Mitral valve disorder 46186546 01/31/2022 Res olved Personal history of TIA 311353887 01/31/2022 R esolved Type 2 diabetes 49491804 01/31/2022 Resolved Gastroesophageal reflux disease 028849419 01/08 Resolved Iron deficiency anemia 31939601 01/31/2022 Re solved Bipolar disorder 76183000 01/31/2022 Resolved Heart failure 11381758 01/31/2022 Resolved Results Unknown or Not Available. Active Medications Medication Code Dose Units Frequency Route Modificatio n Start Date/Time Azithromycin 250MG Oral Tablet 043608 1 TABLET DAILY ORAL 02/03/2022 08:48 Prescription Detail TAKE 1 TABLET ORAL DAILY ALPRAZolam 1MG Oral Tablet 759241 1 MILLIGRAMS NEEDED TWICE DAILY ORAL 02/03/2022 08:41 Prescription Detail TAKE 1 MILLIGRAMS ORAL NEEDED TWICE D AILY Desvenlafaxine 100MG Oral Tablet, Extended Release 447266 100 MILLIGRAMS DAILY ORAL 2 08:41 Prescription Detail TAKE 100 MILLIGRAMS ORAL DAILY Ezetimibe 10 MG Oral Tablet 728540 10 MG BEDTIME ORAL 02/04/20 08:41 Prescription Detail TAKE 10 MG ORAL BEDTIME lamoTRIgine 100MG Oral Tablet 264393 100 MILLIGRAMS DAILY ORAL 2 08:41 Prescription Detail TAKE 100 MILLIGRAMS ORAL DAILY lamoTRIgine 25MG Oral Tablet 756241 25 MILLIGRAMS DAILY ORAL 022 08:41 Prescription Detail TAKE 25 MILLIGRAMS ORAL DAILY metFORMIN HCl 500MG Oral Tablet, Extended Release 523033 500 MILLIGRAMS BEDTIME ORAL 08:41 Prescription Detail TAKE 500 MILLIGRAMS ORAL BEDTIME Rosuvastatin 40MG Oral Tablet 060334 40 MILLIGRAMS BEDTIME ORAL 08:41 Prescription Detail TAKE 40 MILLIGRAMS ORAL BEDTIME Spironolactone 25MG Oral Tablet 429417 25 MILLIGRAMS TWICE A DAY ORAL 02/03/2022 08:41 Prescription Detail TAKE 25 MILLIGRAMS ORAL TWICE A DAY Warfarin Sodium 2MG Oral Tablet 463429 2 MILLIGRAMS BEDTIME ORAL 08:41 Prescription Detail TAKE 2 MILLIGRAMS ORAL BEDTIME Protonix 40MG Oral Tablet, Enteric Coated 463810 40 MILLIGRAMS DAILY ORAL 07/10 13:32 Prescription Detail TAKE 40 MILLIGRAMS ORAL DAILY PREMARIN 0.45MG ORAL TABLET 0 0.45 MILLIGRAMS DAILY ORAL 019 00:16 Prescription Detail TAKE 0.45 MILLIGRAMS ORAL DAILY Medications Administered During Visit Unknown or Not Available. Encounters Encounter Diagnosis Diagnosis Code Start Date Screening mammography [id number] 08/18/2021 Social History Smoking Status Code Start Date End Date Former smoker 6450299 Patient Decision Aids Unknown or Not Available. Discharge Instructions You were admitted to [facility] on 08/18/2021 11:08 with a principal diagnosis of Encounter for screening mammogram for malignant neoplasm of breast You were discharged from [facility] on 08/18/2021 11:08 Should you have any questions prior to discharge, please contact a member of your healthcare team. If you have left the hospital and have any questions, please contact your primary care physician. Chief Complaint and Reason For Visit Unknown or Not Available. Function Status Description Code Date Type Status No Cognitive Impairments 75130799 Functional Active No Functional Impairments 72473869 Functional Active Plan of Care Unknown or Not Available. Referral/Transition of Care Unknown or Not Available.
--- OUTSIDE RECORDS SUMMARY | 2023-01-18 15:54 | XMS_ITS | CCD ---
Author Name Unknown Address [address] [place] [address] [phone] Organization Unknown Address [address] [place], [place] [phone] Care Team Providers Care Validation Manager Name Role Phone JESSE HORNE Attending Physician [phone] DEEPTI GALLAGHER Er Physician [phone] ALEXEY SALAZAR (Secondary) Physician [phone] JONO Mathews Registered Nurse [phone] Vital Signs Vital Sign Value Unit Date/Time Recent/Initial ? BMI (Body Mass Index) 40.44 kg/m^2 01/31/2022 07: 34 Initial VS Weight Measured 221.12 lbs 01/31/2022 07:34 Ini tial VS Height 62 in 01/31/2022 07:34 Initial VS BSA (Body Surface Area) 2.09 m^2 01/31/2022 0 7:34 Initial VS BP Systolic 125 mmHg 01/31/2022 07:34 Initial VS BP Diastolic 92 mmHg 01/31/2022 07:34 Initia l VS Respiratory Rate 24 bpm 01/31/2022 07:34 In itial VS Heart Rate 89 bpm 01/31/2022 07:34 Initial VS O2 % BldC Oximetry 100 % 01/31/2022 07:34 Initial VS Body Temperature 37.9 degrees 01/31/2022 07:34 In itial VS BMI (Body Mass Index) 40.44 kg/m^2 02/02/2022 08: 06 Most Recent VS Weight Measured 221.12 lbs 02/02/2022 08:06 Mos t Recent VS Height 62 in 02/02/2022 08:06 Most Rec ent VS BSA (Body Surface Area) 2.09 m^2 02/02/2022 0 8:06 Most Recent VS BP Systolic 119 mmHg 02/03/2022 07:30 Most Re cent VS BP Diastolic 78 mmHg 02/03/2022 07:30 Most R ecent VS Respiratory Rate 21 bpm 02/03/2022 07:[address] Recent VS Heart Rate 73 bpm 02/03/2022 07:30 Most Rec ent VS O2 % BldC Oximetry 96 % 02/03/2022 07:30 Most Recent VS Body Temperature 37 degrees 02/03/2022 07:[address] Recent VS Allergies Allergy Code Allergy Type Reaction Status No Known Allergies 0 No known allergies Active Procedures Unknown or Not Available. History of Immunizations Unknown or Not Available. Problems Problem Code Start Date Resolved Date Status Pneumonia 552955688 Active Paroxysmal atrial fibrillation 481152983 Active Chronic pain due to injury 062773853 Active Hypoxia 021547818 Active Hyperlipidemia 41099958 01/31/2022 Resolved Obstructive sleep apnea 05506618 01/31/2022 R esolved Anxiety 64492535 01/31/2022 Resolved Rheumatic heart disease 15889712 01/31/2022 R esolved Aortic valve disorder 4909227 01/31/2022 Res olved Mitral valve disorder 85833333 01/31/2022 Res olved Personal history of TIA 882062025 01/31/2022 R esolved Type 2 diabetes 60394723 01/31/2022 Resolved Gastroesophageal reflux disease 821968056 01/08 Resolved Iron deficiency anemia 14928857 01/31/2022 Re solved Bipolar disorder 70057890 01/31/2022 Resolved Heart failure 64765595 01/31/2022 Resolved Results BASIC METABOLIC PANEL (BMP) - Collect Date/Time: 02/02/2022 06:20 Test Name Code Test Result Test Units Test Ref Rang e GLUCOSE 2345-7 87 mg/dL L=70 H=116 BUN 3094-0 18 mg/dL L=6 H=25 CREATININE 2160-0 1.05 mg/dL L=0.51 H=0.95 SODIUM SERUM 2951-2 140 mmol/L L=136 H=145 POTASSIUM SERUM 2823-3 3.6 mmol/L L=3.4 H=5 .2 CHLORIDE SERUM 2075-0 107 mmol/L L=96 H=110 CARBON DIOXIDE (CO2) 2028-9 25 mmol/L L=22 H=34 ANION GAP 56556-5 8.0 mmol/L CALCIUM SERUM 00863-6 8.2 mg/dL L=8.2 H=10. 2 AGE 61 years eGFR (non-Afr.Amer.) 28489-8 53 mL/min eGFR (Afr-German) 29783-3 64 mL/min BASIC METABOLIC PANEL (BMP) - Collect Date/Time: 02/01/2022 09:00 Test Name Code Test Result Test Units Test Ref Rang e GLUCOSE 2345-7 124 mg/dL L=70 H=116 BUN 3094-0 22 mg/dL L=6 H=25 CREATININE 2160-0 1.29 mg/dL L=0.51 H=0.95 SODIUM SERUM 2951-2 138 mmol/L L=136 H=145 POTASSIUM SERUM 2823-3 3.8 mmol/L L=3.4 H=5 .2 CHLORIDE SERUM 2075-0 104 mmol/L L=96 H=110 CARBON DIOXIDE (CO2) 2028-9 25 mmol/L L=22 H=34 ANION GAP 31843-7 8.8 mmol/L CALCIUM SERUM 62893-4 8.3 mg/dL L=8.2 H=10. 2 AGE 61 years eGFR (non-Afr.Amer.) 47689-4 42 mL/min eGFR (Afr-German) 18717-1 51 mL/min BNP (PRO-B NATRIURETIC PEPTI DE) - Collect Date/Time: 01/31/2022 07:00 Test Name Code Test Result Test Units Test Ref Rang e NT-proBNP 63512-1 320.0 pg/mL L=0.0 H=125 COMPREHENSIVE METABOLIC PANE L (CMP) - Collect Date/Time: 01/31/2022 07:00 Test Name Code Test Result Test Units Test Ref Rang e GLUCOSE 2345-7 116 mg/dL L=70 H=116 BUN 3094-0 18 mg/dL L=6 H=25 CREATININE 2160-0 1.24 mg/dL L=0.51 H=0.95 SODIUM SERUM 2951-2 138 mmol/L L=136 H=145 POTASSIUM SERUM 2823-3 3.8 mmol/L L=3.4 H=5 .2 CHLORIDE SERUM 2075-0 101 mmol/L L=96 H=110 CARBON DIOXIDE (CO2) 2028-9 28 mmol/L L=22 H=34 ANION GAP 93842-6 9.5 mmol/L CALCIUM SERUM 73458-6 8.7 mg/dL L=8.2 H=10. 2 BILIRUBIN TOTAL 1975-2 0.8 mg/dL L=0.0 H=1 .3 ALK. PHOS. 6768-6 96 U/L L=46 H=116 SGOT (AST) 1920-8 37 U/L L=15 H=37 SGPT (ALT) 1742-6 24 U/L L=12 H=78 TOTAL PROTEIN 2885-2 7.3 gm/dL L=6.0 H=8.0 ALBUMIN 1751-7 3.8 gm/dL L=3.4 H=5.0 AGE 61 years eGFR (non-Afr.Amer.) 24989-0 44 mL/min eGFR (Afr-German) 18244-9 53 mL/min LACTIC ACID - Collect Date/T niru: 02/02/2022 06:20 Test Name Code Test Result Test Units Test Ref Rang e LACTIC ACID 72089-4 1.6 mmol/L L=0.7 H=2.1 LACTIC ACID - Collect Date/T niru: 01/31/2022 07:00 Test Name Code Test Result Test Units Test Ref Rang e LACTIC ACID 70444-5 2.9 mmol/L L=0.7 H=2.1 MAGNESIUM SERUM* - Collect D ate/Time: 01/31/2022 07:00 Test Name Code Test Result Test Units Test Ref Rang e MAGNESIUM 23663-4 1.8 mg/dL L=1.8 H=2.4 TROPONIN HIGH SENSITIVITY* - Collect Date/Time: 01/31/2022 07:00 Test Name Code Test Result Test Units Test Ref Rang e TROPONIN HS 20.9 pg/mL L=0.0 H=60.4 Specimen seq. Random N/A CBC W/ DIFFERENTIAL* - [facility] ct Date/Time: 02/02/2022 06:20 Test Name Code Test Result Test Units Test Ref Rang e WBC 6690-2 13.62 th/cmm L=5.00 H=10.00 NEUT % 79.1 % L=40.0 H=80.0 LYMPH % 14.0 % L=10.0 H=50.0 MONO % 96081-6 6.1 % L=2.0 H=12.0 EOS % 0.0 % L=0.0 H=8.0 BASO % 0.2 % L=0.0 H=3.0 IG % 2514-8 0.6 % L=0.0 H=1.1 NRBC % 82650-4 0.0 % L=0.0 H=0.0 NEUT abs count 751-8 10.8 th/cmm L=1.6 H=8. 4 LYMPH abs count 731-0 1.9 th/cmm L=1.5 H=4 .0 MONO abs count 742-7 0.8 th/cmm L=0.2 H=1. 0 EOS abs count 711-2 0.0 th/cmm L=0.0 H=0.5 BASO abs count 704-7 0.0 th/cmm L=0.0 H=0. 2 IG abs count 05817-5 0.1 th/cmm L=0.0 H=0.1 NRBC abs count 73058-5 0.0 mil/cmm L=0.0 H=0. 0 RBC 789-8 3.70 mil/cmm L=3.90 H=5.40 HEMOGLOBIN 718-7 11.1 gm/dL L=12.0 H=16.0 HEMATOCRIT 4544-3 35 % L=37 H=47 MCV 787-2 94 fL L=82 H=92 MCH 785-6 30.0 pg L=27.0 H=31.0 MCHC 786-4 32.0 % L=32.0 H=36.0 RDW-SD 788-0 49.3 fL L=39.0 H=49.0 PLATELET COUNT 777-3 219 th/cmm L=150 H=45 0 CBC W/ DIFFERENTIAL* - [facility] ct Date/Time: 02/01/2022 09:00 Test Name Code Test Result Test Units Test Ref Rang e WBC 6690-2 19.01 th/cmm L=5.00 H=10.00 NEUT % 82.3 % L=40.0 H=80.0 LYMPH % 8.2 % L=10.0 H=50.0 MONO % 88128-4 5.5 % L=2.0 H=12.0 EOS % 0.2 % L=0.0 H=8.0 BASO % 0.3 % L=0.0 H=3.0 IG % 2514-8 3.5 % L=0.0 H=1.1 NRBC % 22998-2 0.0 % L=0.0 H=0.0 NEUT abs count 751-8 15.7 th/cmm L=1.6 H=8. 4 LYMPH abs count 731-0 1.6 th/cmm L=1.5 H=4 .0 MONO abs count 742-7 1.0 th/cmm L=0.2 H=1. 0 EOS abs count 711-2 0.0 th/cmm L=0.0 H=0.5 BASO abs count 704-7 0.1 th/cmm L=0.0 H=0. 2 IG abs count 06946-9 0.7 th/cmm L=0.0 H=0.1 NRBC abs count 02949-8 0.0 mil/cmm L=0.0 H=0. 0 RBC 789-8 4.03 mil/cmm L=3.90 H=5.40 HEMOGLOBIN 718-7 12.4 gm/dL L=12.0 H=16.0 HEMATOCRIT 4544-3 37 % L=37 H=47 MCV 787-2 93 fL L=82 H=92 MCH 785-6 30.8 pg L=27.0 H=31.0 MCHC 786-4 33.2 % L=32.0 H=36.0 RDW-SD 788-0 48.3 fL L=39.0 H=49.0 PLATELET COUNT 777-3 214 th/cmm L=150 H=45 0 CBC W/ DIFFERENTIAL* - [facility] ct Date/Time: 01/31/2022 07:00 Test Name Code Test Result Test Units Test Ref Rang e WBC 6690-2 11.95 th/cmm L=5.00 H=10.00 NEUT % 89.7 % L=40.0 H=80.0 LYMPH % 5.7 % L=10.0 H=50.0 MONO % 65527-7 3.9 % L=2.0 H=12.0 EOS % 0.0 % L=0.0 H=8.0 BASO % 0.2 % L=0.0 H=3.0 IG % 2514-8 0.5 % L=0.0 H=1.1 NRBC % 47719-2 0.0 % L=0.0 H=0.0 NEUT abs count 751-8 10.7 th/cmm L=1.6 H=8. 4 LYMPH abs count 731-0 0.7 th/cmm L=1.5 H=4 .0 MONO abs count 742-7 0.5 th/cmm L=0.2 H=1. 0 EOS abs count 711-2 0.0 th/cmm L=0.0 H=0.5 BASO abs count 704-7 0.0 th/cmm L=0.0 H=0. 2 IG abs count 24788-9 0.1 th/cmm L=0.0 H=0.1 NRBC abs count 91666-0 0.0 mil/cmm L=0.0 H=0. 0 RBC 789-8 5.08 mil/cmm L=3.90 H=5.40 HEMOGLOBIN 718-7 15.1 gm/dL L=12.0 H=16.0 HEMATOCRIT 4544-3 47 % L=37 H=47 MCV 787-2 92 fL L=82 H=92 MCH 785-6 29.7 pg L=27.0 H=31.0 MCHC 786-4 32.3 % L=32.0 H=36.0 RDW-SD 788-0 46.4 fL L=39.0 H=49.0 PLATELET COUNT 777-3 268 th/cmm L=150 H=45 0 D-DIMER - Collect Date/Time: 01/31/2022 07:00 Test Name Code Test Result Test Units Test Ref Rang e D-DIMER 68917-1 0.84 mg/L L=0.19 H=0.50 PT PROTHROMBIN TIME* - [facility] ct Date/Time: 02/03/2022 07:15 Test Name Code Test Result Test Units Test Ref Rang e PROTIME 5902-2 16.3 seconds L=9.3 H=11.4 INR 51150-3 1.69 L=2.00 H=3.00 PT PROTHROMBIN TIME* - [facility] ct Date/Time: 02/02/2022 06:20 Test Name Code Test Result Test Units Test Ref Rang e PROTIME 5902-2 23.5 seconds L=9.3 H=11.4 INR 38043-4 2.49 L=2.00 H=3.00 PT PROTHROMBIN TIME* - [facility] ct Date/Time: 02/01/2022 09:00 Test Name Code Test Result Test Units Test Ref Rang e PROTIME 5902-2 34.8 seconds L=9.3 H=11.4 INR 73077-4 3.80 L=2.00 H=3.00 PT PROTHROMBIN TIME* - [facility] ct Date/Time: 01/31/2022 07:00 Test Name Code Test Result Test Units Test Ref Rang e PROTIME 5902-2 30.9 seconds L=9.3 H=11.4 INR 80948-9 3.34 L=2.00 H=3.00 PTT PARTIAL THROMBOPLASTIN T NIRU* - Collect Date/Time: 02/01/2022 09:00 Test Name Code Test Result Test Units Test Ref Rang e PTT 93011-0 52 seconds L=24 H=32 MOSHE COVID GENEXPERT* - Co llect Date/Time: 01/31/2022 07:00 Test Name Code Test Result Test Units Test Ref Rang e COVID 00036-1 NEGATIVE N/A Normal: Negati ve [facility]- 18719-2 SYMPTOMS N/A Active Medications Medications Administered During Visit Medication Dose Units Frequency Route Date/Time of Last Dose ACETAMINOPHEN INJ IVPB: 1000MG/100ML 1000 MG X1 01/31/2022 07:4 6 CefTRIAXone IVPB: 1GM/50ML 1 GM X1 01/31/2022 09:12 AZITHROMYCIN IVPB: 500MG/250ML 500 MG X1 01/31/2022 09:54 SODIUM CHLORIDE 0.9% 500ML 500 ML X1 01/31/2022 08:23 FentaNYL INJ SDV: 100MCG/2ML 25 MCG X1 I STAMPING DIE MAKER 01/31/2022 09:13 ALBUTEROL/IPRATROP UPDRAFT:2.5/0.5MG/3ML 3 ML X1 INH 2021 09:13 LORazepam INJ SYRINGE: 2MG/ML 0.5 MG X1 IVP 01/31/2022 10:30 ONDANSETRON INJ SDV: 4MG/2ML 4 MG X1 I STAMPING DIE MAKER 01/31/2022 10:30 LIDOCAINE PATCH 5% 1 PATCH X1 TOP 0 01/31/2022 11:33 ACETAMINOPHEN INJ IVPB: 1000MG/100ML 1000 MG X1 01/31/2022 13:4 8 LamoTRIgine TABLET: 100MG 125 MG X1 PO 01/31/2022 14:14 ALPRAZolam TABLET: 0.25MG 1 MG X1 PO 01/31/2022 14:14 ACETAMINOPHEN TABLET: 325MG 975 MG PRN Q6H PO 02/03/2022 08:27 SODIUM CHLORIDE 0.9% 1000ML 1000 ML X1 01/31/2022 17:43 ACETAMINOPHEN INJ IVPB: 1000MG/100ML 1 EA PRN Q6H 02/02/2022 05:3 2 DOCUSATE SODIUM CAPSULE: 100MG 100 MG BID PO 02/03/2022 08:28 AZITHROMYCIN IVPB: 500MG/250ML 500 MG Q24H 02/03/2022 09:58 CefTRIAXone IVPB: 1GM/50ML 1 GM Q24H 02/03/2022 08:29 PANTOPRAZOLE TABLET: 40MG 40 MG Q7AM PO 02/03/2022 06:21 LamoTRIgine TABLET: 100MG 100 MG DAILY PO 02/03/2022 08:27 SPIRONOLACTONE TABLET: 25MG 25 MG BID PO 02/03/2022 08:27 MetFORMIN TABLET EXTENDED RELEASE: 500MG 500 MG BEDTIME PO 02/02/2022 20 :30 ALPRAZolam TABLET: 0.25MG 1 MG PRN BID PO 02/01/2022 09:50 LamoTRIgine TABLET CHEWABLE: 25MG 25 MG DAILY CHEW 02/03/2022 08:2 7 EZETIMIBE TABLET: 10MG 10 MG BEDTIME PO 02/02/2022 20:29 NF-Premarin Oral Tablet 0.45MG 0.45 MILLIGRAMS DAILY ORAL 02/03/2022 08:28 NF-Desvenlafaxine Oral Table t ER 100MG 100 MG DAILY PO 02/03/2022 08:2 8 NF-Rosuvastatin Oral Tablet 40MG 40 MG BEDTIME PO 02/02/2022 20:2 9 NURSING REMINDER-CHECK FOR WARFARIN DOSE 1 --- Q6PM --- 02/02/2022 17: 56 GuaiFENesin/DM SYRUP: 200/20MG/10ML 10 ML PRN Q4H PO 02/02/2022 20: 29 BENZONATATE CAPSULE: 100MG 100 MG PRN TID PO 02/03/2022 08:27 ALBUTEROL/IPRATROP UPDRAFT:2.5/0.5MG/3ML 3 ML QID RESP INH 2021 11:37 IBUPROFEN TABLET: 400MG 400 MG X1 PO 01/31/2022 22:02 IBUPROFEN TABLET: 400MG 400 MG PRN Q6H PO 02/03/2022 01:37 ALPRAZolam TABLET: 0.25MG 1 MG BID PO 02/03/2022 08:27 WARFARIN TABLET: 2MG 2 MG Q6PM PO 02/02/2022 17:55 MethylPREDNISolone SUC INJ SDV:40MG/1ML 60 MG X1 IVP 02/03/2022 10:0 1 Encounters Encounter Diagnosis Diagnosis Code Start Date Pneumonia, unspecified organism [id number] 01/31/2022 Social History Smoking Status Code Start Date End Date Former smoker [id number] Patient Decision Aids Unknown or Not Available. Discharge Instructions You were admitted to [facility] on 01/31/2022 14:45 with a principal diagnosis of Pneumonia, unspecified organism You had the following tests done:PT PROTHROMBIN TIME*BASIC METABOLIC PANEL (BMP)CBC W/ DIFFERENTIAL*LACTIC ACIDPT PROTHROMBIN TIME*BASIC METABOLIC PANEL (BMP)CBC W/ DIFFERENTIAL*PT PROTHROMBIN TIME*PTT PARTIAL THROMBOPLASTIN TIME*BNP (PRO-B NATRIURETIC PEPTIDE)CBC W/ DIFFERENTIAL*COMPREHENSIVE METABOLIC PANEL (CMP)[facility] COVID GENEXPERT*D-DIMERLACTIC ACIDMAGNESIUM SERUM*PT PROTHROMBIN TIME*TROPONIN HIGH SENSITIVITY* You were discharged from [facility] on 02/03/2022 13:10 Should you have any questions prior to discharge, please contact a member of your healthcare team. If you have left the hospital and have any questions, please contact your primary care physician. Chief Complaint and Reason For Visit Chief Complaint Date of Onset PNEUMONIA 01/31/2022 Function Status Description Code Date Type Status No Cognitive Impairments 66847536 Functional Active No Functional Impairments 48394377 Functional Active Plan of Care Unknown or Not Available. Referral/Transition of Care Unknown or Not Available.
--- OUTSIDE RECORDS SUMMARY | 2023-01-18 15:54 | XMS_ITS | CCD ---
Author Name Unknown Address [address] [place] [address] [phone] Organization Unknown Address [address] [place] [address] [id number] Care Team Providers Care Neon Glass Blower Name Role Phone MARISELA LNUA Attending Physician [phone] Vital Signs Unknown or Not Available. Allergies Allergy Code Allergy Type Reaction Status No Known Allergies 0 No known allergies Active Procedures Unknown or Not Available. History of Immunizations Unknown or Not Available. Problems Problem Code Start Date Resolved Date Status Pneumonia 964631848 Active Paroxysmal atrial fibrillation 660549730 Active Chronic pain due to injury 662957080 Active Hypoxia 471884350 Active Results Unknown or Not Available. Active Medications Medication Code Dose Units Frequency Route Modificatio n Start Date/Time Azithromycin 250MG Oral Tablet 165520 1 TABLET DAILY ORAL 02/03/2022 08:48 Prescription Detail TAKE 1 TABLET ORAL DAILY ALPRAZolam 1MG Oral Tablet 198876 1 MILLIGRAMS NEEDED TWICE DAILY ORAL 02/03/2022 08:41 Prescription Detail TAKE 1 MILLIGRAMS ORAL NEEDED TWICE D AILY Desvenlafaxine 100MG Oral Tablet, Extended Release 580568 100 MILLIGRAMS DAILY ORAL 2 08:41 Prescription Detail TAKE 100 MILLIGRAMS ORAL DAILY Ezetimibe 10 MG Oral Tablet 349907 10 MG BEDTIME ORAL 02/04/20 22 08:41 Prescription Detail TAKE 10 MG ORAL BEDTIME lamoTRIgine 100MG Oral Tablet 551729 100 MILLIGRAMS DAILY ORAL 2 08:41 Prescription Detail TAKE 100 MILLIGRAMS ORAL DAILY lamoTRIgine 25MG Oral Tablet 040589 25 MILLIGRAMS DAILY ORAL 022 08:41 Prescription Detail TAKE 25 MILLIGRAMS ORAL DAILY metFORMIN HCl 500MG Oral Tablet, Extended Release 208503 500 MILLIGRAMS BEDTIME ORAL 2 08:41 Prescription Detail TAKE 500 MILLIGRAMS ORAL BEDTIME Rosuvastatin 40MG Oral Tablet 334282 40 MILLIGRAMS BEDTIME ORAL 08:41 Prescription Detail TAKE 40 MILLIGRAMS ORAL BEDTIME Spironolactone 25MG Oral Tablet 691410 25 MILLIGRAMS TWICE A DAY ORAL 02/03/2022 08:41 Prescription Detail TAKE 25 MILLIGRAMS ORAL TWICE A DAY Warfarin Sodium 2MG Oral Tablet 362969 2 MILLIGRAMS BEDTIME ORAL 08:41 Prescription Detail TAKE 2 MILLIGRAMS ORAL BEDTIME Protonix 40MG Oral Tablet, Enteric Coated 266687 40 MILLIGRAMS DAILY ORAL 07/10 13:32 Prescription Detail TAKE 40 MILLIGRAMS ORAL DAILY PREMARIN 0.45MG ORAL TABLET 0 0.45 MILLIGRAMS DAILY ORAL 019 00:16 Prescription Detail TAKE 0.45 MILLIGRAMS ORAL DAILY Medications Administered During Visit Unknown or Not Available. 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 Discharge Instructions You were admitted to [facility] on 05/17/2022 16:20 with a principal diagnosis of Other intervertebral disc degeneration, lumbosacral region You were discharged from [facility] on 05/17/2022 16:20 Should you have any questions prior to discharge, please contact a member of your healthcare team. If you have left the hospital and have any questions, please contact your primary care physician. Chief Complaint and Reason For Visit Chief Complaint Date of Onset HIP PAIN CHRONIC LOW BACK PAIN Function Status Description Code Date Type Status No Cognitive Impairments 95575281 Functional Active No Functional Impairments 47955888 Functional Active Plan of Care Unknown or Not Available. Referral/Transition of Care Unknown or Not Available.
--- OUTSIDE RECORDS SUMMARY | 2023-01-18 15:54 | XMS_ITS | CCD ---
Author Name Unknown Address [address] [place] [address] [phone] Organization Unknown Address [address] [place] [address] [phone] Care Team Providers Care Meat Specialist Name Role Phone MARISELA LUNA Attending Physician [phone] Vital Signs Unknown or Not Available. Allergies Allergy Code Allergy Type Reaction Status No Known Allergies 0 No known allergies Active Procedures Unknown or Not Available. History of Immunizations Unknown or Not Available. Problems Problem Code Start Date Resolved Date Status Pneumonia 486395151 Active Paroxysmal atrial fibrillation 474240994 Active Chronic pain due to injury 454546587 Active Hypoxia 811273695 Active Results PT PROTHROMBIN TIME* - [facility] ct Date/Time: 06/13/2022 12:21 Test Name Code Test Result Test Units Test Ref Rang e PROTIME 5902-2 31.8 seconds L=9.3 H=11.4 INR 73345-1 3.45 L=2.00 H=3.00 Active Medications Medication Code Dose Units Frequency Route Modificatio n Start Date/Time Azithromycin 250MG Oral Tablet 536032 1 TABLET DAILY ORAL 02/03/2022 08:48 Prescription Detail TAKE 1 TABLET ORAL DAILY ALPRAZolam 1MG Oral Tablet 972439 1 MILLIGRAMS NEEDED TWICE DAILY ORAL 02/03/2022 08:41 Prescription Detail TAKE 1 MILLIGRAMS ORAL NEEDED TWICE D AILY Desvenlafaxine 100MG Oral Tablet, Extended Release 912237 100 MILLIGRAMS DAILY ORAL 2 08:41 Prescription Detail TAKE 100 MILLIGRAMS ORAL DAILY Ezetimibe 10 MG Oral Tablet 601271 10 MG BEDTIME ORAL 02/04/20 22 08:41 Prescription Detail TAKE 10 MG ORAL BEDTIME lamoTRIgine 100MG Oral Tablet 734047 100 MILLIGRAMS DAILY ORAL 2 08:41 Prescription Detail TAKE 100 MILLIGRAMS ORAL DAILY lamoTRIgine 25MG Oral Tablet 988540 25 MILLIGRAMS DAILY ORAL 022 08:41 Prescription Detail TAKE 25 MILLIGRAMS ORAL DAILY metFORMIN HCl 500MG Oral Tablet, Extended Release 509185 500 MILLIGRAMS BEDTIME ORAL 08:41 Prescription Detail TAKE 500 MILLIGRAMS ORAL BEDTIME Rosuvastatin 40MG Oral Tablet 907778 40 MILLIGRAMS BEDTIME ORAL 08:41 Prescription Detail TAKE 40 MILLIGRAMS ORAL BEDTIME Spironolactone 25MG Oral Tablet 976630 25 MILLIGRAMS TWICE A DAY ORAL 02/03/2022 08:41 Prescription Detail TAKE 25 MILLIGRAMS ORAL TWICE A DAY Warfarin Sodium 2MG Oral Tablet 620079 2 MILLIGRAMS BEDTIME ORAL 08:41 Prescription Detail TAKE 2 MILLIGRAMS ORAL BEDTIME Protonix 40MG Oral Tablet, Enteric Coated 629567 40 MILLIGRAMS DAILY ORAL 07/10 13:32 Prescription Detail TAKE 40 MILLIGRAMS ORAL DAILY PREMARIN 0.45MG ORAL TABLET 0 0.45 MILLIGRAMS DAILY ORAL 019 00:16 Prescription Detail TAKE 0.45 MILLIGRAMS ORAL DAILY Medications Administered During Visit Unknown or Not Available. Encounters Encounter Diagnosis Diagnosis Code Start Date Therapeutic drug monitoring assay [id number] 06/13/2022 Social History Smoking Status Code Start Date End Date Former smoker [id number] Patient Decision Aids Unknown or Not Available. Discharge Instructions You were admitted to [facility] on 06/13/2022 11:56 with a principal diagnosis of Encounter for therapeutic drug level monitoring You had the following tests done:PT PROTHROMBIN TIME* You were discharged from [facility] on 06/13/2022 11:56 Should you have any questions prior to discharge, please contact a member of your healthcare team. If you have left the hospital and have any questions, please contact your primary care physician. Chief Complaint and Reason For Visit Unknown or Not Available. Function Status Description Code Date Type Status No Cognitive Impairments 96139687 Functional Active No Functional Impairments 75070810 Functional Active Plan of Care Unknown or Not Available. Referral/Transition of Care Unknown or Not Available.
--- OUTSIDE RECORDS SUMMARY | 2023-01-18 15:54 | XMS_ITS | CCD ---
Author Name Unknown Address [address] [place] [address] [phone] Organization Unknown Address [address] [place] [address] [id number] Care Team Providers Care Rn Burn Name Role Phone JESSE HORNE Attending Physician [phone] Vital Signs Unknown or Not Available. Allergies Allergy Code Allergy Type Reaction Status No Known Allergies 0 No known allergies Active Procedures Unknown or Not Available. History of Immunizations Unknown or Not Available. Problems Problem Code Start Date Resolved Date Status Pneumonia 270281840 Active Paroxysmal atrial fibrillation 189730142 Active Chronic pain due to injury 335591604 Active Hypoxia 756614393 Active Hyperlipidemia 64502298 01/31/2022 Resolved Obstructive sleep apnea 07713529 01/31/2022 R esolved Anxiety 87511535 01/31/2022 Resolved Rheumatic heart disease 03636770 01/31/2022 R esolved Aortic valve disorder 1985960 01/31/2022 Res olved Mitral valve disorder 40196851 01/31/2022 Res olved Personal history of TIA 805180151 01/31/2022 R esolved Type 2 diabetes 93164560 01/31/2022 Resolved Gastroesophageal reflux disease 518685921 01/08 Resolved Iron deficiency anemia 61080907 01/31/2022 Re solved Bipolar disorder 88063269 01/31/2022 Resolved Heart failure 62807366 01/31/2022 Resolved Results Unknown or Not Available. Active Medications Medication Code Dose Units Frequency Route Modificatio n Start Date/Time Azithromycin 250MG Oral Tablet 935717 1 TABLET DAILY ORAL 02/03/2022 08:48 Prescription Detail TAKE 1 TABLET ORAL DAILY ALPRAZolam 1MG Oral Tablet 335180 1 MILLIGRAMS NEEDED TWICE DAILY ORAL 02/03/2022 08:41 Prescription Detail TAKE 1 MILLIGRAMS ORAL NEEDED TWICE D AILY Desvenlafaxine 100MG Oral Tablet, Extended Release 198112 100 MILLIGRAMS DAILY ORAL 2 08:41 Prescription Detail TAKE 100 MILLIGRAMS ORAL DAILY Ezetimibe 10 MG Oral Tablet 042081 10 MG BEDTIME ORAL 02/04/20 08:41 Prescription Detail TAKE 10 MG ORAL BEDTIME lamoTRIgine 100MG Oral Tablet 842689 100 MILLIGRAMS DAILY ORAL 2 08:41 Prescription Detail TAKE 100 MILLIGRAMS ORAL DAILY lamoTRIgine 25MG Oral Tablet 115070 25 MILLIGRAMS DAILY ORAL 022 08:41 Prescription Detail TAKE 25 MILLIGRAMS ORAL DAILY metFORMIN HCl 500MG Oral Tablet, Extended Release 968851 500 MILLIGRAMS BEDTIME ORAL 2 08:41 Prescription Detail TAKE 500 MILLIGRAMS ORAL BEDTIME Rosuvastatin 40MG Oral Tablet 488439 40 MILLIGRAMS BEDTIME ORAL 08:41 Prescription Detail TAKE 40 MILLIGRAMS ORAL BEDTIME Spironolactone 25MG Oral Tablet 874509 25 MILLIGRAMS TWICE A DAY ORAL 02/03/2022 08:41 Prescription Detail TAKE 25 MILLIGRAMS ORAL TWICE A DAY Warfarin Sodium 2MG Oral Tablet 540386 2 MILLIGRAMS BEDTIME ORAL 08:41 Prescription Detail TAKE 2 MILLIGRAMS ORAL BEDTIME Protonix 40MG Oral Tablet, Enteric Coated 725817 40 MILLIGRAMS DAILY ORAL 07/10 13:32 Prescription Detail TAKE 40 MILLIGRAMS ORAL DAILY PREMARIN 0.45MG ORAL TABLET 0 0.45 MILLIGRAMS DAILY ORAL 019 00:16 Prescription Detail TAKE 0.45 MILLIGRAMS ORAL DAILY Medications Administered During Visit Unknown or Not Available. Encounters Encounter Diagnosis Diagnosis Code Start Date Pneumonia, unspecified organism [id number] 01/31/2022 Social History Smoking Status Code Start Date End Date Former smoker 8593861 Patient Decision Aids Unknown or Not Available. Discharge Instructions You were admitted to [facility] on 01/31/2022 00:46 with a principal diagnosis of Pneumonia, unspecified organism You were discharged from [facility] on 02/03/2022 00:46 Should you have any questions prior to discharge, please contact a member of your healthcare team. If you have left the hospital and have any questions, please contact your primary care physician. Chief Complaint and Reason For Visit Unknown or Not Available. Function Status Description Code Date Type Status No Cognitive Impairments [id number] Functional Active No Functional Impairments 27215610 Functional Active Plan of Care Unknown or Not Available. Referral/Transition of Care Unknown or Not Available.
== END 2023-01-18 15:49 | disposition home or self-care (01) ==
LOC: NCHCN 15:48
PROVIDERS: PCP Nurse Practitioner Family; Visit Provider Internal Medicine
DX: Z95.2 Presence of prosthetic heart valve (principal); Z79.01 Long term (current) use of anticoagulants; I48.0 Paroxysmal atrial fibrillation
CPT/HCPCS: 85610

== ENCOUNTER 2023-01-29 17:26 | Outpatient (REF) | payer MEDICAID, SELFPAY ==
[2023-01-29 18:06] LABS: Prothrombin Time 57.1 sec (9.3-11.0)
[2023-01-29 18:27] LABS: INR 5.7 (0.9-1.1)
== END 2023-01-29 17:27 | disposition home or self-care (01) ==
LOC: NCHCN 17:26
PROVIDERS: PCP Nurse Practitioner Family; Visit Provider Internal Medicine
DX: I48.0 Paroxysmal atrial fibrillation (principal); Z79.01 Long term (current) use of anticoagulants
CPT/HCPCS: 85610

== ENCOUNTER 2023-02-05 13:22 | Outpatient (REF) | payer MEDICAID, SELFPAY ==
[2023-02-05 15:31] LABS: Prothrombin Time 47.8 sec (9.3-11.0)
[2023-02-05 15:49] LABS: INR 4.8 (0.9-1.1)
== END 2023-02-05 13:23 | disposition home or self-care (01) ==
LOC: NCHCN 13:22
PROVIDERS: PCP Nurse Practitioner Family; Visit Provider Internal Medicine
DX: I48.0 Paroxysmal atrial fibrillation (principal); Z79.01 Long term (current) use of anticoagulants
CPT/HCPCS: 85610

== ENCOUNTER 2023-02-12 17:59 | Outpatient (REF) | payer MEDICAID, SELFPAY ==
[2023-02-12 16:58] LABS: Prothrombin Time 48.8 sec (9.3-11.0)
[2023-02-12 17:38] LABS: INR 4.9 (0.9-1.1)
== END 2023-02-12 18:00 | disposition home or self-care (01) ==
LOC: NCHCN 17:59
PROVIDERS: PCP Nurse Practitioner Family; Visit Provider Internal Medicine
DX: I48.0 Paroxysmal atrial fibrillation (principal); Z79.01 Long term (current) use of anticoagulants
CPT/HCPCS: 85610

== ENCOUNTER 2023-03-21 15:13 | Outpatient (REF) | payer MEDICAID, SELFPAY ==
[2023-03-21 21:13] LABS: HCT 47.5 % (36.0-46.0); HGB 15.1 g/dL (11.2-15.7); MCH 30.4 pg (27.0-33.0); MCHC 31.8 % (32.0-36.0); MCV 96 fL (80-95); MPV 9.7 fL (8.0-11.0); Platelet Count 326 10^3/uL (130-400); RBC 4.96 10^6/uL (3.93-5.22); RDW-SD 53.1 fL; WBC 9.12 10^3/uL (4.4-10.8)
[2023-03-21 21:21] LABS: Lithium 0.5 mmol/l (0.6-1.2)
[2023-03-21 21:22] LABS: Iron 148 ug/dL (50-170); Total Iron Binding Capacity 400 ug/dL (250-450); Transferrin Sat 37 % (15-50)
[2023-03-21 21:25] LABS: Anion Gap 8.4 mmol/L (3-11); BUN 10 mg/dL (7-18); CO2 26.6 mmol/L (21.0-32.0); CREATININE 1.4 mg/dL (0.55-1.02); Chloride 107 mmol/L (98-107); Estimated GFR 42.01 (mL/min/1.73m2); Glucose 179 mg/dL (74-106); Potassium 4.3 mmol/L (3.5-5.1); Sodium 142 mmol/L (136-145)
== END 2023-03-21 15:14 | disposition home or self-care (01) ==
LOC: NCHCN 15:13
PROVIDERS: PCP Nurse Practitioner Family; Visit Provider Internal Medicine
DX: D50.9 Iron deficiency anemia, unspecified (principal); I50.22 Chronic systolic (congestive) heart failure; F31.62 Bipolar disorder, current episode mixed, moderate; R73.03 Prediabetes
CPT/HCPCS: 80048; 85027; 80178; 83036; 83540; 83550

== ENCOUNTER 2023-05-10 16:10 | Outpatient (REF) | payer MEDICAID, SELFPAY ==
[2023-05-10 21:23] LABS: Abs Immature Grans 0.03 10^3/uL (0.0-0.06); Absolute Basophil Count 0.07 10^3/uL (0.0-0.2); Absolute Lymphocyte Count 1.52 10^3/uL (1.2-3.4); Absolute Monocyte Count 1.11 10^3/uL (0.1-0.8); Absolute Neutrophil Count 7.77 10^3/uL (1.2-6.7); Basophils % 0.7; HCT 45.6 % (36.0-46.0); HGB 14.4 g/dL (11.2-15.7); Immature Grans % 0.3; Lymphocytes % 14.5; MCHC 31.6 % (32.0-36.0); MCV 98 fL (80-95); MPV 9.7 fL (8.0-11.0); Monocytes % 10.6; Neutrophils % 73.9; Platelet Count 311 10^3/uL (130-400); RBC 4.65 10^6/uL (3.93-5.22); RDW 14.4 % (11.7-14.6); RDW-SD 52.6 fL
[2023-05-10 21:26] LABS: ESR 4 mm/hr (0-30)
[2023-05-10 21:55] LABS: C-Reactive Protein < 0.05 mg/dL (0.0-0.3)
== END 2023-05-10 16:11 | disposition home or self-care (01) ==
LOC: NCHCN 16:10
PROVIDERS: PCP Nurse Practitioner Family; Visit Provider Internal Medicine
DX: R51.9 Headache, unspecified (principal)
CPT/HCPCS: 85652; 85025; 86140

== ENCOUNTER 2023-05-23 16:57 | Outpatient (REF) | payer MEDICAID, SELFPAY ==
[2023-05-23 20:56] LABS: HCT 36.6 % (36.0-46.0); HGB 11.4 g/dL (11.2-15.7); MCH 31.2 pg (27.0-33.0); MCHC 31.1 % (32.0-36.0); MCV 100 fL (80-95); MPV 9.5 fL (8.0-11.0); Platelet Count 279 10^3/uL (130-400); RBC 3.65 10^6/uL (3.93-5.22); RDW 14.6 % (11.7-14.6); RDW-SD 53.5 fL; WBC 8.21 10^3/uL (4.4-10.8)
== END 2023-05-23 16:58 | disposition home or self-care (01) ==
LOC: NCHCN 16:57
PROVIDERS: PCP Nurse Practitioner Family; Visit Provider Internal Medicine
DX: R31.29 Other microscopic hematuria (principal); D50.9 Iron deficiency anemia, unspecified
CPT/HCPCS: 85027

== ENCOUNTER 2023-09-13 13:03 | Outpatient (REF) | payer MEDICARE, SELFPAY ==
[2023-09-13 21:11] LABS: HCT 44.2 % (36.0-46.0); HGB 13.4 g/dL (11.2-15.7); MCH 27.3 pg (27.0-33.0); MCHC 30.3 % (32.0-36.0); MCV 90 fL (80-95); MPV 9.7 fL (8.0-11.0); Platelet Count 327 10^3/uL (130-400); RBC 4.91 10^6/uL (3.93-5.22); RDW 14.6 % (11.7-14.6); RDW-SD 48.4 fL; WBC 8.35 10^3/uL (4.4-10.8)
[2023-09-13 22:02] LABS: Anion Gap 6.4 mmol/L (3-11); BUN 15 mg/dL (7-18); CO2 27.6 mmol/L (21.0-32.0); CREATININE 1.1 mg/dL (0.55-1.02); Calcium 9.1 mg/dL (8.5-10.1); Chloride 107 mmol/L (98-107); Estimated GFR 55.76 (mL/min/1.73m2); Glucose 90 mg/dL (74-106); Sodium 141 mmol/L (136-145); TSH (W/Ref FT4) 1.72 uIU/mL (0.36-3.74); Vitamin B12 244 pg/mL (193-986)
[2023-09-13 22:05] LABS: Hemoglobin A1C 5.1 % (<5.7)
== END 2023-09-13 13:04 | disposition home or self-care (01) ==
LOC: NCHCN 13:03
PROVIDERS: PCP Nurse Practitioner Family; Visit Provider Internal Medicine
DX: R73.03 Prediabetes (principal); E02 Subclinical iodine-deficiency hypothyroidism; R41.3 Other amnesia; N18.9 Chronic kidney disease, unspecified
CPT/HCPCS: 80048; 85027; 82607; 83036; 84443

== ENCOUNTER 2024-03-02 15:49 | Outpatient (REF) | payer MEDICARE, SELFPAY ==
[2024-03-02 21:45] LABS: HCT 43.7 % (36.0-46.0); HGB 13.6 g/dL (11.2-15.7); MCH 27.9 pg (27.0-33.0); MCHC 31.1 % (32.0-36.0); MCV 90 fL (80-95); MPV 9.9 fL (8.0-11.0); Platelet Count 339 10^3/uL (130-400); RBC 4.88 10^6/uL (3.93-5.22); RDW 14.7 % (11.7-14.6); RDW-SD 47.8 fL; WBC 10.27 10^3/uL (4.4-10.8)
[2024-03-02 22:07] LABS: Hemoglobin A1C 5.4 % (<5.7)
[2024-03-02 22:33] LABS: ALT 25 U/L (14-59); AST 28 U/L (15-37); Albumin 3.9 g/dL (3.4-5.0); Alkaline Phosphatase 104 U/L (46-116); Anion Gap 5.8 mmol/L (3-11); BUN 15 mg/dL (7-18); Bilirubin, Total 0.53 mg/dL (0.2-1.0); CO2 32.2 mmol/L (21.0-32.0); CREATININE 1.1 mg/dL (0.55-1.02); Calcium 9.4 mg/dL (8.5-10.1); Chloride 105 mmol/L (98-107); Estimated GFR 55.76 (mL/min/1.73m2); Glucose 113 mg/dL (74-106); Potassium 4.7 mmol/L (3.5-5.1); Sodium 143 mmol/L (136-145); Total Protein 7.1 g/dL (6.4-8.2); Vitamin B12 1107 pg/mL (193-986)
== END 2024-03-02 15:50 | disposition home or self-care (01) ==
LOC: NCHCN 15:49
PROVIDERS: PCP Nurse Practitioner Family; Visit Provider Internal Medicine
DX: R73.03 Prediabetes (principal); N18.9 Chronic kidney disease, unspecified; E53.8 Deficiency of other specified B group vitamins
CPT/HCPCS: 80053; 85027; 82607; 83036

== ENCOUNTER 2024-03-26 16:59 | Outpatient (REF) | payer MEDICARE, SELFPAY ==
[2024-03-26 21:11] LABS: INR 3.8 (0.9-1.1); Prothrombin Time 34.3 sec (9.1-11.1)
== END 2024-03-26 17:00 | disposition home or self-care (01) ==
LOC: NCHCN 16:59
PROVIDERS: PCP Nurse Practitioner Family; Visit Provider Internal Medicine
DX: Z95.2 Presence of prosthetic heart valve (principal); Z79.01 Long term (current) use of anticoagulants
CPT/HCPCS: 85610

== ENCOUNTER 2025-06-14 15:21 | Outpatient (REF) | payer MEDICARE, SELFPAY ==
[2025-06-14 21:29] LABS: INR 4.0 (0.9-1.1); Prothrombin Time 36.6 sec (9.1-11.1)
== END 2025-06-14 15:22 | disposition home or self-care (01) ==
LOC: NCHCN 15:21
PROVIDERS: PCP Nurse Practitioner Family; Visit Provider Internal Medicine
DX: Z79.01 Long term (current) use of anticoagulants (principal)
CPT/HCPCS: 85610

== ENCOUNTER 2025-07-06 15:23 | Outpatient (REF) | payer MEDICARE, SELFPAY ==
[2025-07-06 21:03] LABS: Prothrombin Time 42.3 sec (9.1-11.1)
[2025-07-06 21:22] LABS: INR 4.7 (0.9-1.1)
[2025-07-08 13:49] LABS: Bacterial Vaginosis (BV) Negative (Negative); Candida glabrata Negative (Negative); Candida species group Positive (Negative)
== END 2025-07-06 15:24 | disposition home or self-care (01) ==
LOC: NCHCN 15:23
PROVIDERS: PCP Nurse Practitioner Family; Visit Provider Family Medicine
DX: Z79.01 Long term (current) use of anticoagulants (principal); N39.0 Urinary tract infection, site not specified
CPT/HCPCS: 81513; 87481; 87661; 85610; 87086

== ENCOUNTER 2025-08-02 15:05 | Outpatient (REF) | payer MEDICARE, SELFPAY ==
[2025-08-02 21:17] LABS: HCT 43.4 % (36.0-46.0); HGB 13.3 g/dL (11.2-15.7); MCH 25.9 pg (27.0-33.0); MCHC 30.6 % (32.0-36.0); MCV 85 fL (80-95); MPV 9.7 fL (8.0-11.0); Platelet Count 315 10^3/uL (130-400); RBC 5.13 10^6/uL (3.93-5.22); RDW 17.4 % (11.7-14.6); RDW-SD 53.5 fL; WBC 6.01 10^3/uL (4.4-10.8)
[2025-08-02 21:30] LABS: Iron 40 ug/dL (50-170); Total Iron Binding Capacity 453 ug/dL (250-425); Transferrin Sat 9 % (15-50)
[2025-08-02 21:33] LABS: Ferritin 11 ng/mL (7-271)
[2025-08-02 21:44] LABS: Prothrombin Time 37.1 sec (9.1-11.1)
[2025-08-02 21:53] LABS: INR 4.1 (0.9-1.1)
== END 2025-08-02 15:06 | disposition home or self-care (01) ==
LOC: NCHCN 15:05
PROVIDERS: PCP Nurse Practitioner Family; Visit Provider Internal Medicine
DX: E61.1 Iron deficiency (principal); I48.0 Paroxysmal atrial fibrillation
CPT/HCPCS: 85027; 82728; 83540; 83550; 85610

== ENCOUNTER 2025-09-08 13:54 | Outpatient (REF) | payer MEDICARE, SELFPAY ==
[2025-09-08 20:21] LABS: ESR 21 mm/hr (0-30)
[2025-09-10 17:23] LABS: CRP, High Sensitivity 1.43 mg/L (See Note)
== END 2025-09-08 13:55 | disposition home or self-care (01) ==
LOC: NCHCN 13:54
PROVIDERS: PCP Nurse Practitioner Family; Visit Provider Internal Medicine
DX: K12.1 Other forms of stomatitis (principal)
CPT/HCPCS: 85652; 86141